=== PATIENT | male | born 1960 | race Caucasian/White ===

== ENCOUNTER 2017-03-14 18:06 | Emergency (ER) | payer OTHER ==
[2017-03-14 20:28] VITALS: BP 150/84
--- NOTE | 2017-03-14 20:31 | ED ---
Throat Pain/Nasal Congestion - HPI Summary HPI Summary: Patient presents to the ED with CC of nosebleeds daily in the mornings for 1 week. He states he awakes every morning feeling like he is gagging with difficulty breathing and then a nosebleed will occur from his right nare which he explains as "gushing" and soaking through several towels. This occurs daily and only lasts a few minutes with a cessation shortly after. Never had epistaxis during the rest of the days. He denies fatigue, light headedness, N/V or other symptoms. He is concerned with is health and is asking if he can be admitted to have a "full workup." It was explained to the patient we would not provide that here, and will need to go through his primary care for labs and anything else he may need. He does not appear to have anything acute and has no other complaints. He notes to some depression and states he may want to speak with someone, but not yet. Denies SI/HI. Denies drug use, but notes to ETOH use. He is currently out of all of his medications and is requesting refills as well as a PCP referral. Patient is a smoker. He takes lisinopril and metroprolol. - History of Current Complaint Chief Complaint: EDGeneral Time Seen by Provider: 03/14/17 19:18 Hx Obtained From: Patient Onset/Duration: Sudden Onset Severity: Mild Associated Signs And Symptoms: Positive: Negative - Epiglottits Risk Factors Epiglottis Risk Factors: Negative PMH/Surg Hx/FS Hx/Imm Hx Previously Healthy: Yes - Immunization History Hx Pertussis Vaccination: No Immunizations Up to Date: Unable to Obtain/Confirm Infectious Disease History: No Infectious Disease History: Denies: Traveled Outside the [place] in Last 30 Days - Social History Occupation: Employed Full-time Lives: Dormitory/Roommates Alcohol Use: Daily Alcohol Amount: liquor Hx Substance Use: Yes Substance Use Type: Reports: Marijuana Hx Tobacco Use: Yes Smoking Status (MU): Current Every Day Smoker Review of Systems Constitutional: Negative Negative: Fever, Chills, Fatigue Eyes: Negative Positive: Epistaxis. Negative: Dental Pain, Sore Throat, Ear Ache Cardiovascular: Negative Negative: Shortness Of Breath, Cough Gastrointestinal: Negative Positive: no symptoms reported, see HPI Skin: Negative Neurological: Negative Positive: Anxious, Depressed All Other Systems Reviewed And Are Negative: Yes Physical Exam Triage Information Reviewed: Yes Vital Signs On Initial Exam: Initial Vitals Temp Pulse Resp BP Pulse Ox 97.2 F 88 20 175/110 97 03/14/17 18:10 03/14/17 18:10 03/14/17 18:10 03/14/17 18:10 03/14/17 18:10 Vital Signs Reviewed: Yes Appearance: Positive: Well-Appearing, Well-Nourished Skin: Positive: Warm, Skin Color Reflects Adequate Perfusion Head/Face: Positive: Normal Head/Face Inspection Eyes: Positive: ELISA, Conjunctiva Clear Neck: Positive: Supple, No Lymphadenopathy Respiratory/Lung Sounds: Positive: Wheezes - bilaterally - at baseline Cardiovascular: Positive: Normal, RRR Musculoskeletal: Positive: Normal, Strength/ROM Intact Neurological: Positive: Sensory/Motor Intact, Alert, Oriented to Person Place, Time Psychiatric: Positive: Normal AVPU Assessment: Alert - Queta Coma Scale Best Eye Response: 4 - Spontaneous Best Motor Response: 6 - Obeys Commands Best Verbal Response: 5 - Oriented Coma Scale Total: 15 Diagnostics - Vital Signs Vital Signs Temp Pulse Resp BP Pulse Ox 03/14/17 18:10 97.2 F 88 20 175/110 97 - Laboratory Lab Statement: Any lab studies that have been ordered have been reviewed, and results considered in the medical decision making process. EENT Course/Dx - Course Course Of Treatment: Discussed with patient the need for follow ups to ENT and PCP. He is concerned with his health and is requesting follow ups and medication refills. He denies any current pain or concerns. He states he has felt depressed lately. When prompted and asked if he would like to speak with someone, he declines twice, stating he will speak with his PCP once he finds one. Denies SI/HI. He drinks ETOH daily. Recently lost his job. He states he will find some outpatient care and again is refusing to speak with someone today. Also discussed the need for ENT and how likely his coughing/gaggin in the AM along with his right nare bleed is most likely from a sleep apnea and lying supine. He agrees to this. He is given referrals to all necessary. Medications are not refilled at this time, he states he has enough metroprolol and will continue to take that until follow up. - Differential Diagnoses Differential Diagnoses: Other - epistaxis, depression, sleep apnea - Diagnoses Provider Diagnoses: Epistaxis Discharge - Discharge Plan Condition: Stable Disposition: HOME Patient Education Materials: Nosebleed (ED) Referrals: [facility] [Provider Group] [facility] [Provider Group] [facility] [Provider Group] Brandon Veliz MD [Medical Doctor] - No Primary Care Phys,NOPCP [Primary Care Provider] - Additional Instructions: Follow up with ENT ANDREA. I have given you a referral. You need to establish care with a PCP so you can get your blood pressure under control STOP SMOKING
== END 2017-03-14 20:29 | disposition home or self-care (01) ==
LOC: ED 18:06
DX: R04.0 Epistaxis (principal); F17.210 Nicotine dependence, cigarettes, uncomplicated; F41.9 Anxiety disorder, unspecified; F32.9 Major depressive disorder, single episode, unspecified
CPT/HCPCS: 99282